=== PATIENT | female | born 1980 | race Caucasian/White ===

== ENCOUNTER 2024-07-31 13:56 | Emergency (ER) | payer MEDICAID, SELFPAY ==
[2024-07-31] VITALS (8 sets, daily range): BP systolic 128–175; BP diastolic 87–115; PULSE 82–102; RESP 16–20; TEMP 36.5–37.1; O2SAT 95–99; BMI 41.5
--- NOTE | 2024-07-31 14:31 | XR_ITS ---
Examination: CT abdomen and pelvis without contrast. Coronal 3-D reconstructions. Sagittal 2-D reconstructions. Date and time of exam:July 31, 2024, 1650 hours INDICATIONS: Abdominal pain and cramping vomiting beginning 2 days ago CTDI: vol (mGy): 12.5 DLP: (mGycm): 759 Technique: Axial images of the abdomen have been obtained, 3 mm slice thickness Intravenous contrast material has not been administered. Low dose protocols were performed. One or more of the following dose reduction techniques were used; automated exposure control, adjustment of the mA and/or KV according to patient size, use of iterative reconstruction technique. Findings: Small pericardial effusion Fatty infiltration throughout the liver, liver is irregular in contour No gallstones Spleen is not enlarged No pancreatic mass 25 mm fat-containing left adrenal adenoma No renal or ureteral calculi, no hydronephrosis No pericecal inflammatory change Large solid mass arising in the pelvis and extending into the lower abdomen, at least 12.7 x 11.6 x 14.3 cm which is contiguous with the fundus of the uterus Intrauterine device is low in position in the lower uterine segment and cervix Grade 1 spondylolisthesis L5 on S1 with moderate degenerative disc disease at the L5-S1 level IMPRESSION: 12.7 x 11.6 x 14.3 cm pelvic mass contiguous with the fundus of the uterus, differential would include uterine mass, ovarian tumor, recommend transabdominal transvaginal pelvic sonography follow-up
--- NOTE | 2024-07-31 14:32 | PD.EDRME ---
Rapid Medical Screening Exam RME Arrival date/time: 07/31/24 13:56 44-year-old female with no known medical history presents to the emergency room with a chief complaint of bilateral lower pelvic pain that radiates to her left flank x 2 days I have greeted and performed a focused initial assessment of this patient. A comprehensive ED assessment and evaluation of the patient, analysis of all test results, and completion of the medical decision making process will be conducted by additional ED providers. Chief Complaint: Abdominal Pain Vital signs: Vital Signs Temperature 98.6 F 07/31/24 14:28 Pulse Rate 102 H 07/31/24 14:28 Respiratory Rate 18 07/31/24 14:28 Blood Pressure 142/87 H 07/31/24 14:28 Pulse Oximetry (%) 99 07/31/24 14:28 Oxygen Delivery Method Room Air 07/31/24 14:28 Vital signs reviewed by provider: Yes
[2024-07-31] MEDS: ONDANSETRON ODT 4 MG TABRAP PO (15:02)
[2024-07-31] MEDS: HYDROcodone/APAP 5/325 TABLET 1 TAB PO (15:02)
[2024-07-31 15:10] LABS: Basophils # (Auto) 0.1 Thou/mm3 (0.0-0.2); Basophils % (Auto) 0 % (0-2.5); Eosinophils # (Auto) 0.1 Thou/mm3 (0.0-0.5); Eosinophils % (Auto) 1 % (0-10); Hematocrit 22.8 % (36.0-46.0); Immature Granulocytes % (Auto) 1 % (0-0); Immature Granulocytes Auto 0.07 Thou/mm3 (0.00-0.00); Lymphocytes # (Auto) 0.4 Thou/mm3 (1.0-4.8); Lymphocytes % (Auto) 3 % (10-50); Mean Corpuscular HGB Conc 30.7 g/dl (31.0-37.0); Mean Corpuscular Hemoglobin 20.5 pg (25.0-35.0); Mean Corpuscular Volume 67 fL (80-100); Monocytes # (Auto) 1.4 Thou/mm3 (0.0-0.8); Monocytes % (Auto) 12 % (0-12); Neutrophils # (Auto) 9.7 Thou/mm3 (1.8-7.7); Neutrophils % (Auto) 83 % (37-80); Nucleated Red Blood Cell % 0 /100 WBC (0); Platelet Count 478 Thou/mm3 (140-440); RDW Standard Deviation 44.5 fL (36.4-46.3); Red Blood Count 3.41 Miln/mm3 (4.00-5.20); White Blood Count 11.7 Thou/mm3 (3.6-11.0)
[2024-07-31 15:30] LABS: Alanine Aminotransferase < 7 U/L (10-49); Albumin, Serum 4.3 gm/dL (3.5-5.0); Albumin/Globulin Ratio 1.6 (1.2-2.2); Alkaline Phosphatase 67 U/L (46-116); Anion Gap 13 (7-16); BUN/Creatinine Ratio 14 Ratio (12-20); Bilirubin,Total 0.4 mg/dL (0.3-1.2); Blood Urea Nitrogen 14 mg/dL (9-23); Calcium 9.4 mg/dL (8.3-10.6); Calcium (Corrected) 9.4 mg/dL (8.5-10.1); Carbon Dioxide 25.6 mMol/L (20.0-31.0); Chloride 104 mMol/L (98-107); Estimated Creatinine Clearance 90.2 mL/min (>60); Globulin 2.7 gm/dL (2.3-3.5); Glucose 179 mg/dL (74-106); Lipase 33 U/L (12-53); Osmolality,Calculated 289 (275-295); Potassium 4.2 mMol/L (3.4-5.1); Sodium 143 mMol/L (136-145); eGFR > 60 See Note
[2024-07-31 15:34] LABS: Collection Type, Urine Clean Catch
[2024-07-31 15:51] LABS: Bilirubin,Urine 1+ (Negative); Blood,Urine 3+ (Negative); Color,Urine Drk Red (Lt Yel-Yel); Glucose, Urine Trace (Negative); Ketones,Urine Trace (Negative); Leukocyte Esterase,Urine Trace (Negative); Nitrite,Urine Positive (Negative); Protein,Urine 3+ (Neg - Trace)
[2024-07-31 16:17] LABS: HCG Qualitative,Urine Negative
[2024-07-31 16:19] LABS: Clarity,Urine Bloody (Clear/Hazy)
[2024-07-31 16:20] LABS: Bacteria,Urine Rare; RBC,Urine 10000 /hpf (0-3); Squamous Epithelial Cell,Urine 1 /hpf (0-5); WBC,Urine 30 /hpf (0-5)
--- NOTE | 2024-07-31 17:45 | XR_ITS ---
Examination: Pelvic ultrasound, transabdominal, complete Technique: Transabdominal ultrasound of the pelvis performed using grayscale imaging Date and time of exam: July 31, 20242023 hours INDICATIONS: Abdominal and pelvic pain today, 14 cm mass in the pelvis extending into the abdomen on CT abdomen and pelvis study today FINDINGS: Uterus 9.0 cm endometrial stripe 0.6 cm Intrauterine device in the lower uterine segment Right ovary is not visualized Partial visualization of the same very large pelvic mass extending into the abdomen, which is not measured on this study The left ovary 3.7 cm IMPRESSION: Large pelvic mass, likely ovarian tumor best visualized on the CT abdomen and pelvis today study Recommend MRI pelvis follow-up pre and post intravenous contrast
--- NOTE | 2024-07-31 17:46 | EKG_ITS ---
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
--- NOTE | 2024-07-31 19:26 | PC.NURSE ---
Pt was brought back for revital she is upset because no one has talked to her about what s going on Pt also stated she was told an hour ago a provider would be in to talk to her about results. Pt stated she is a 6/10 pain.
--- NOTE | 2024-07-31 19:39 | EDNOTE_ITS ---
ED Abdominal Pain RME/HPI General Chief Complaint: Abdominal Pain Stated complaint: LOWER MIDDLE ABD PAIN Time seen by provider: 07/31/24 17:47 Arrival date/time: 07/31/24 13:56 Melissa 44-year-old female presents to the ED with a complaint of lower bilateral pelvic pain with radiation to her left flank, weakness and fatigue as well as heavy vaginal bleeding with passage of clots for the past 2 days. Her heavy menstrual bleeding has been ongoing for the past 6 menstrual cycles. She does not have a primary care physician and states she has not been to a doctor in approximately 10 years. She was concerned about possible endometriosis. Source: patient Mode of arrival: ambulatory Limitations: no limitations RME / HPI RME / HPI narrative: 07/31/24 13:56 44-year-old female with no known medical history presents to the emergency room with a chief complaint of bilateral lower pelvic pain that radiates to her left flank x 2 days I have greeted and performed a focused initial assessment of this patient. A comprehensive ED assessment and evaluation of the patient, analysis of all test results, and completion of the medical decision making process will be conducted by additional ED providers. Related Data Previous Rx's ?Medication ?Instructions ?Recorded meloxicam 15 mg tablet 15 mg PO QDAY #10 tabs 08/01 Allergies Allergy/AdvReac Type Severity Reaction Status Date / Time NKA Allergy Unknown Uncoded 07/31/24 13:58 WALNUTS Allergy Unknown Uncoded 07/31/24 13:58 No Known Allergies Allergy Uncoded 07/31/24 13:58 Review of Systems Review of Systems Systems Reviewed: All systems reviewed, normal except as documented Past Medical History Social History SMOKING STATUS: Former smoker ED Exam Narrative Physical exam: Alert and oriented, melissa 44-year-old female, no acute distress. Appears pale with pale conjunctiva. Lungs are clear, regular rate and rhythm without murmurs, abdomen is soft with mild bilateral lower pelvic tenderness, mild bilateral CVA and low back tenderness. Moves all extremities well. General Limitations: Present no limitations General appearance: Present alert and in no apparent distress Course Course Course Narrative: Melissa 44-year-old female presents to the ED with a complaint of lower bilateral pelvic pain with radiation to her left flank, weakness and fatigue as well as heavy vaginal bleeding with passage of clots for the past 2 days. Her heavy menstrual bleeding has been ongoing for the past 6 menstrual cycles. She does not have a primary care physician and states she has not been to a doctor in approximately 10 years. She was concerned about possible endometriosis. Alert and oriented, pleasant 44-year-old female, no acute distress. Appears pale with pale conjunctiva. Lungs are clear, regular rate and rhythm without murmurs, abdomen is soft with mild bilateral lower pelvic tenderness, mild b ilateral CVA and low back tenderness. Moves all extremities well. Labs reveal a minimally elevated white blood cell count of 11.7, H&H low at 7.0/22.8, platelets are elevated at 478. ANC elevated at 9.7. Chemistry panel is essentially normal with the exception of a glucose of 179. LFTs and renal panel are normal Urinalysis reveals bloody dark red urine with a specific gravity of 1.020, 3+ protein, 3+ blood, positive nitrites, 1+ bilirubin, 10,000 RBCs, 30 WBCs, 1 epithelial cell and rare bacteria. Blood bank tests reveal low positive blood with negative antibody screen. Blood products ordered, PRBCs x [address] abdomen and pelvis reveals a 12.7 x 11.6 x 14.3 cm pelvic mass contiguous with the fundus of the uterus. Differential diagnosis would include uterine mass, ovarian tumor. Transabdominal and transvaginal pelvic ultrasound is recommended. Findings: Small pericardial effusion Fatty infiltration throughout the liver, liver is irregular in contour No gallstones Spleen is not enlarged No pancreatic mass 25 mm fat-containing left adrenal adenoma No renal or ureteral calculi, no hydronephrosis No pericecal inflammatory change Large solid mass arising in the pelvis and extending into the lower abdomen, at least 12.7 x 11.6 x 14.3 cm which is contiguous with the fundus of the uterus Intrauterine device is low in position in the lower uterine segment and cervix Grade 1 spondylolisthesis L5 on S1 with moderate degenerative disc disease at the L5-S1 level IMPRESSION: 12.7 x 11.6 x 14.3 cm pelvic mass contiguous with the fundus of the uterus, differential would include uterine mass, ovarian tumor, recommend transabdominal transvaginal pelvic sonography follow-up Quality Measures none Orders Category Date 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 07/31/24 17:46 Active EKG (ED ONLY) *Do not use* NOW Care 07/31/24 17:46 Completed Insert IV STAT Care 07/31/24 17:46 Active NPO NOW Care 07/31/24 17:46 Active Transfuse,blood/blood products ONCE Care 07/31/24 17:[address] abdomen pelvis wo con Stat Exams 07/31/24 14:31 Completed EKG (ED Only) Stat Exams 07/31/24 17:46 Draft US pelvic complete Stat Exams 07/31/24 17:45 Completed CBC Auto Diff Post-Transfusion Routine Lab 07/31/24 21:00 Completed CBC Stat Lab 07/31/24 14:40 Completed CMP [Comprehensive Metabolic Panel] Stat Lab 07/31/24 14:40 Completed HCG Qualitative,Urine Stat Lab 07/31/24 15:24 Completed Lipase Stat Lab 07/31/24 14:40 Completed Red Blood Cells Stat Lab 07/31/24 18:38 Results Type and Screen Stat Lab 07/31/24 18:38 Results UA [Urinalysis] Stat Lab 07/31/24 15:24 Completed Urine Culture Stat Lab 07/31/24 15:24 Received Acetaminophen Tab [Tylenol Tab] Med 07/31/24 17:46 Discontinued 650 mg PO X1 ONE DiphenhydrAMINE [Benadryl] Med 07/31/24 17:46 Discontinued 25 mg PO X1 ONE Furosemide Inj [Lasix Inj] Med 08/01/24 00:59 Discontinued 40 mg .ROUTE .STK-MED ONE Furosemide [Lasix Inj] Med 07/31/24 17:46 Discontinued 40 mg IVP X1 ONE HYDROcodone*/APAP 5/325 [[place] 5/325] Med 07/31/24 14:31 Discontinued 1 tab PO X1 ONE HYDROcodone/APAP 10/325 [[place] 10/325] Med 07/31/24 19:27 Discontinued 1 tab PO X1 ONE Ondansetron Odt [Zofran Odt] Med 07/31/24 14:31 Discontinued 4 mg PO X1 ONE Vital Signs Vital signs: Vital Signs Temperature 98.6 F 07/31/24 14:28 Pulse Rate 102 H 07/31/24 14:28 Respiratory Rate 18 07/31/24 14:28 Blood Pressure 142/87 H 07/31/24 14:28 Pulse Oximetry (%) 99 07/31/24 14:28 Oxygen Delivery Method Room Air 07/31/24 14:28 Abdominal Pain MDM MDM Narrative MDM Narrative:: Pleasant 44-year-old female presents to the ED with a complaint of lower bilateral pelvic pain with radiation to her left flank, weakness and fatigue as well as heavy vaginal bleeding with passage of clots for the past 2 days. Her heavy menstrual bleeding has been ongoing for the past 6 menstrual cycles. She does not have a primary care physician and states she has not been to a doctor in approximately 10 years. She was concerned about possible endometriosis. Alert and oriented, pleasant 44-year-old female, no acute distress. Appears pale with pale conjunctiva. Lungs are clear, regular rate and rhythm without murmurs, abdomen is soft with mild bilateral lower pelvic tenderness, mild bilateral CVA and low back tenderness. Moves all extremities well. Labs reveal a minimally elevated white blood cell count of 11.7, H&H low at 7.0/22.8, platelets are elevated at 478. ANC elevated at 9.7. Chemistry panel is essentially normal with the exception of a glucose of 179. LFTs and renal panel are normal Urinalysis reveals bloody dark red urine with a specific gravity of 1.020, 3+ protein, 3+ blood, positive nitrites, 1+ bilirubin, 10,000 RBCs, 30 WBCs, 1 epithelial cell and rare bacteria. Blood bank tests reveal low positive blood with negative antibody screen. Blood products ordered, PRBCs x [address] abdomen and pelvis reveals a 12.7 x 11.6 x 14.3 cm pelvic mass contiguous with the fundus of the uterus. Differential diagnosis would include uterine mass, ovarian tumor. Transabdominal and transvaginal pelvic ultrasound is recommended. Transabdominal and Transvaginal US reveals: Large pelvic mass, likely ovarian tumor best visualized on the CT abdomen and pelvis today study. Recommend MRI pelvis follow-up pre and post intravenous contrast. Posttransfusion hemoglobin is currently 7.5. Patient feels improved with transfusion and pain medications. Patient data External records reviewed:: None Clinical information provided by:: patient Social determinants that could affect healthcare access:: none Patient has the following chronic illnesses:: None known How is presenting disease/condition affected by chronic disease/condition?: no chronic disease Evaluation data The following diagnostics were reviewed and interpreted by me:: lab results and radiology exam(s) Lab and/or radiology exams considered but not ordered:: N/A Interpretation Summary: Labs reveal a minimally elevated white blood cell count of 11.7, H&H low at 7.0/22.8, platelets are elevated at 478. ANC elevated at 9.7. Chemistry panel is essentially normal with the exception of a glucose of 179. LFTs and renal panel are normal Urinalysis reveals bloody dark red urine with a specific gravity of 1.020, 3+ protein, 3+ blood, positive nitrites, 1+ bilirubin, 10,000 RBCs, 30 WBCs, 1 epithelial cell and rare bacteria. Blood bank tests reveal low positive blood with negative antibody screen. Blood products ordered, PRBCs x [address] abdomen and pelvis reveals a 12.7 x 11.6 x 14.3 cm pelvic mass contiguous with the fundus of the uterus. Differential diagnosis would include uterine mass, ovarian tumor. Transabdominal and transvaginal pelvic ultrasound is recommended. Transabdominal and Transvaginal US reveals: Large pelvic mass, likely ovarian tumor best visualized on the CT abdomen and pelvis today study. Recommend MRI pelvis follow-up pre and post intravenous contrast. Findings: Small pericardial effusion Fatty infiltration throughout the liver, liver is irregular in contour No gallstones Spleen is not enlarged No pancreatic mass 25 mm fat-containing left adrenal adenoma No renal or ureteral calculi, no hydronephrosis No pericecal inflammatory change Large solid mass arising in the pelvis and extending into the lower abdomen, at least 12.7 x 11.6 x 14.3 cm which is contiguous with the fundus of the uterus Intrauterine device is low in position in the lower uterine segment and cervix Grade 1 spondylolisthesis L5 on S1 with moderate degenerative disc disease at the L5-S1 level IMPRESSION: 12.7 x 11.6 x 14.3 cm pelvic mass contiguous with the fundus of the uterus, differential would include uterine mass, ovarian tumor, recommend transabdominal transvaginal pelvic sonography follow-up Transabdominal/Transvaginal US: FINDINGS: Uterus 9.0 cm endometrial stripe 0.6 cm Intrauterine device in the lower uterine segment Right ovary is not visualized Partial visualization of the same very large pelvic mass extending into the abdomen, which is not measured on this study The left ovary 3.7 cm IMPRESSION: Large pelvic mass, likely ovarian tumor best visualized on the CT abdomen and pelvis today study Recommend MRI pelvis follow-up pre and post intravenous contrast Medications / Prescriptions Medications or Prescriptions considered but not ordered:: N/A Medication administrations:: Medication Administration History Discontinued Medications Acetaminophen (Acetaminophen 325 Mg Tablet) 650 mg PO X1 ONE Stop: 07/31/24 17:47 Last Admin: 07/31/24 20:52 Dose: 650 mg Documented By: Admin: 07/31/24 20:52 Dose: 650 mg Documented By: VISH Hydrocodone Bitart/Acetaminophen (Hydrocodone/Apap 5/325 Tablet) 1 tab PO X1 ONE Stop: 07/31/24 14:32 Last Admin: 07/31/24 15:02 Dose: 1 tab Documented By: VISH Hydrocodone Bitart/Acetaminophen (Hydrocodone/Apap 10/325 Tab) 1 tab PO X1 ONE Stop: 07/31/24 19:28 Last Admin: 07/31/24 20:52 Dose: 1 tab Documented By: VISH Diphenhydramine HCl (Diphenhydramine 25 Mg Capsule) 25 mg PO X1 ONE Stop: 07/31/24 17:47 Last Admin: 07/31/24 20:53 Dose: 25 mg Documented By: VISH Furosemide (Furosemide Inj 10 Mg/Ml Vial 2 Ml) 40 mg IVP X1 ONE Stop: 07/31/24 17:47 Last Admin: 08/01/24 01:44 Dose: 40 mg Documented By: AM Furosemide (Furosemide Inj 10 Mg/Ml 4ml Vial) Confirm Administered Dose 40 mg .ROUTE .STK-MED ONE Stop: 08/01/24 01:00 Last Admin: 08/01/24 01:36 Dose: Not Given Documented By: AM Non-Admin Reason: Duplicate Medication on eMAR Ondansetron HCl (Ondansetron Odt 4 Mg Tabrap) 4 mg PO X1 ONE; Protocol Stop: 07/31/24 14:32 Last Admin: 07/31/24 15:02 Dose: 4 mg Documented By: VISH [place] 5 mg p.o. x 1, Zofran 4 mg p.o. x 1 hydrocodone 10 mg p.o. x 1 Diphenhydramine 25 mg p.o., Lasix 40 mg IVP x 1, and Tylenol 650 mg p.o. x 1 per transfusion protocol. Consultations Consultation(s) initiated? (list below): Yes Consultation #1 (Physician, Specialty, Details): Dr. Carr, REFUSE DRIVER - Have patient follow-up outpatient . Patient to call on Saturday to schedule an appointment. Time: 02:55 Diagnosis Differential diagnosis abdominal pain: abdominal pain, endometriosis and other Most likely diagnosis given after review of the tests above:: Uterine fibroid, pelvic mass (uterine or ovarian) Admission Indicated Admission indicated?: not indicated Explain why admission is indicated or not indicated:: Patient is stable for discharge Admission Request Was there a request for admission?: No Disposition Plan Disposition Plan: Discharge Discharge Attestation Discharge Attestation: The patient and all family members were given an opportunity to ask questions and understood the discharge instructions. Discharge instructions specifically effects, indications for sooner follow up or return to the emergency department, and the expected course of current diagnosis. Patient condition: Stable Discharge Plan Plan Patient Disposition: HOME (Self Care) Discharge Disposition comment: Stable and Improved Prescriptions/Referrals Prescriptions/Med Rec: New meloxicam 15 mg tablet 15 mg PO QDAY Qty: 10 0RF Referrals: Hira Carr MD [Physician] - In 1 week (Contact His office on Saturday morning to schedule a follow-up appointment next week.) No Primary/Family,Physician [Primary Care Provider] - In 1 week Problem List Clinical Impression: Anemia, Menorrhagia, Pelvic mass in female Patient/Caregiver Discharge Instructions Education Materials: Anemia, ED Dysfunctional Uterine Bleeding Additional Instructions: You have a mass in your pelvis. It is unknown if this mass is a uterine fibroid or a tumor of either the uterus or ovary. You will need to follow-up with the above REFUSE DRIVER. Call on Saturday to schedule an appointment for follow-up. Follow-up with your primary care physician in 24 to 48 hours. Return to the ED for any new or worsening symptoms. Print Language: Slovak Stand Alone Forms: Sruthi Award Info., Patient Portal Info Letter MNADY/CHIDI Supervising Physician SERA Supervising Physician: Dr. Phillips
[2024-07-31] MEDS: ACETAMINOPHEN 325 MG TABLET 650 MG PO ×2 (20:52)
[2024-07-31] MEDS: HYDROcodone/APAP 10/325 TAB PO (20:52)
[2024-07-31] MEDS: DiphenhydrAMINE 25 MG CAPSULE PO (20:53)
--- NOTE | 2024-07-31 21:15 | PC.NURSE ---
Pt was called back to be put in a room. pt did not answer when name was called in the lobby and was not found utside.
[2024-08-01 01:41] VITALS: BP 149/86; PULSE 81; RESP 16; TEMP 36.8; O2SAT 97
[2024-08-01 01:44] VITALS: BP 149/86; PULSE 81
[2024-08-01] MEDS: FUROSEMIDE INJ 10 MG/ML VIAL 2 ML 40 MG IVP (01:44)
[2024-08-01 02:35] LABS: Basophils # (Auto) 0.1 Thou/mm3 (0.0-0.2); Basophils % (Auto) 1 % (0-2.5); Eosinophils # (Auto) 0.2 Thou/mm3 (0.0-0.5); Eosinophils % (Auto) 2 % (0-10); Hematocrit 25.1 % (36.0-46.0); Immature Granulocytes % (Auto) 1 % (0-0); Immature Granulocytes Auto 0.06 Thou/mm3 (0.00-0.00); Lymphocytes # (Auto) 0.6 Thou/mm3 (1.0-4.8); Lymphocytes % (Auto) 5 % (10-50); Mean Corpuscular HGB Conc 29.9 g/dl (31.0-37.0); Mean Corpuscular Hemoglobin 21.1 pg (25.0-35.0); Mean Corpuscular Volume 71 fL (80-100); Monocytes # (Auto) 1.4 Thou/mm3 (0.0-0.8); Monocytes % (Auto) 13 % (0-12); Neutrophils % (Auto) 79 % (37-80); Nucleated Red Blood Cell # 0.02 Thou/mm3 (0.00-0.00); Nucleated Red Blood Cell % 0 /100 WBC (0); Platelet Count 469 Thou/mm3 (140-440); Red Blood Count 3.55 Miln/mm3 (4.00-5.20); White Blood Count 11.3 Thou/mm3 (3.6-11.0)
[2024-08-01 02:41] LABS: Hemoglobin 7.5 g/dL (12.0-16.0)
== END 2024-08-01 03:50 | disposition home or self-care (01) ==
PROVIDERS: Nurse Practitioner Family; Physician Assistant; Emergency Provider Emergency Medicine
DX: D64.9 Anemia, unspecified (principal); N85.8 Other specified noninflammatory disorders of uterus; D72.829 Elevated white blood cell count, unspecified
CPT/HCPCS: 36415; 36430; 74176; 76856; 80053; 81001; 81025; 83690; 85025; 86850; 86900; 86901; 86923; 87086; 93005; 96374; 99285; J1938; P9016; Q0162; A9270

== ENCOUNTER 2024-11-19 10:07 | Inpatient (IN) | payer MEDICAID, SELFPAY ==
[2024-11-19] VITALS (20 sets, daily range): BP systolic 123–154; BP diastolic 61–111; PULSE 70–112; RESP 16–26; TEMP 36.2–38; O2SAT 94–100; BMI 31.0; BMI 31.1
--- NOTE | 2024-11-19 | XR_ITS ---
Examination: MRI pelvis with intravenous contrast. MRI pelvis without intravenous contrast. Date and time of exam: November 19, 2024, 1849 hrs. Indications: Vaginal bleeding beginning 5 days ago worse the last 2 days, pelvic sonogram May 19, 2024 right ovarian tumor mass 14.7 x 11.6 x 15.9 cm Technique: Multiple axial, sagittal and coronal sections of the pelvis obtained. Transverse images, TR 6020, TE 107. T1 weighted transverse images, TR 582, TE 9.5. T2-weighted sagittal images, TR 4000, TE 105. T2-weighted sagittal images, TR 4000, TE 5. Coronal images, TR 4210, TE 107. Axial and coronal images are obtained post 17 cc intravenous injection, gadolinium. 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
--- NOTE | 2024-11-19 10:13 | EKG_ITS ---
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
--- NOTE | 2024-11-19 10:13 | XR_ITS ---
Examination: PA lateral chest 2 views TECHNIQUE: Upright PA lateral chest 2 views Date and time: November 19, 2024 1034 hours INDICATIONS: Weakness fatigue 2 weeks FINDINGS: Normal heart size Lungs are clear. The osseous structures are intact IMPRESSION: No active disease
--- NOTE | 2024-11-19 10:34 | PD.EDRME ---
Rapid Medical Screening Exam RME Arrival date/time: 11/19/24 10:07 44-year-old female presents to the emergency department today with complaints of anemia and near syncopal episode Chief Complaint: Syncope / Near Syncope Time Seen by Provider: 11/19/24 10:09 Vital signs: Vital Signs Temperature 98.6 F 11/19/24 10:20 Pulse Rate 112 H 11/19/24 10:20 Respiratory Rate 20 11/19/24 10:20 Blood Pressure 151/96 H 11/19/24 10:20 Pulse Oximetry (%) 100 11/19/24 10:20 Oxygen Delivery Method Room Air 11/19/24 10:20
[2024-11-19 11:38] LABS: Basophils # (Auto) 0.1 Thou/mm3 (0.0-0.2); Basophils % (Auto) 1 % (0-2.5); Eosinophils # (Auto) 0.0 Thou/mm3 (0.0-0.5); Eosinophils % (Auto) 0 % (0-10); Hematocrit 21.0 % (36.0-46.0); Immature Granulocytes Auto 0.09 Thou/mm3 (0.00-0.00); Lymphocytes # (Auto) 0.5 Thou/mm3 (1.0-4.8); Lymphocytes % (Auto) 6 % (10-50); Mean Corpuscular HGB Conc 27.6 g/dl (31.0-37.0); Mean Corpuscular Hemoglobin 19.4 pg (25.0-35.0); Mean Corpuscular Volume 70 fL (80-100); Monocytes # (Auto) 1.4 Thou/mm3 (0.0-0.8); Monocytes % (Auto) 15 % (0-12); Neutrophils # (Auto) 7.3 Thou/mm3 (1.8-7.7); Neutrophils % (Auto) 77 % (37-80); Nucleated Red Blood Cell # 0.00 Thou/mm3 (0.00-0.00); Nucleated Red Blood Cell % 0 /100 WBC (0); Platelet Count 536 Thou/mm3 (140-440); RDW Standard Deviation 48.1 fL (36.4-46.3); Red Blood Count 2.99 Miln/mm3 (4.00-5.20); White Blood Count 9.4 Thou/mm3 (3.6-11.0)
[2024-11-19 11:47] LABS: INR 1.1 (0.9-1.3); Partial Thromboplastin Time 23.1 Seconds (22.0-36.0); Prothrombin Time 12.1 Seconds (9.0-12.2)
[2024-11-19 11:49] LABS: Hemoglobin 5.8 g/dL (12.0-16.0)
[2024-11-19 11:51] LABS: Alanine Aminotransferase < 7 U/L (10-49); Albumin, Serum 4.5 gm/dL (3.5-5.0); Albumin/Globulin Ratio 1.6 (1.2-2.2); Alkaline Phosphatase 67 U/L (46-116); Anion Gap 14 (7-16); Aspartate Amino Transferase 14 U/L (0-34); BUN/Creatinine Ratio 17 Ratio (12-20); Bilirubin,Total 0.4 mg/dL (0.3-1.2); Blood Urea Nitrogen 15 mg/dL (9-23); Calcium 10.1 mg/dL (8.3-10.6); Calcium (Corrected) 10.1 mg/dL (8.5-10.1); Carbon Dioxide 20.6 mMol/L (20.0-31.0); Chloride 103 mMol/L (98-107); Creatinine (Component) 0.9 mg/dL (0.6-1.3); Estimated Creatinine Clearance 88.8 mL/min (>60); Globulin 2.8 gm/dL (2.3-3.5); Glucose 164 mg/dL (74-106); Magnesium 1.8 mg/dL (1.6-2.6); Osmolality,Calculated 280 (275-295); Potassium 3.6 mMol/L (3.4-5.1); Sodium 138 mMol/L (136-145); Total Protein 7.3 gm/dL (5.7-8.2); Troponin I < 0.002 ng/mL (0.0-0.045); eGFR > 60 See Note
--- NOTE | 2024-11-19 12:02 | PD.EDVAGBL ---
ED OB Contraction Preg RMI/HPI General Chief complaint: Vaginal Bleeding Stated complaint: vag. bleeding 1 pad/hr, near syncope Time Seen by Provider: 11/19/24 10:09 Arrival date/time: 11/19/24 10:07 Limitations: no limitations RME / HPI RME / HPI Narrative: 11/19/24 10:07 44-year-old female presents to the emergency department today with complaints of anemia and near syncopal episode DR. SAAB MAIN ED EVALUATION 44 year old female presents to the ED for evaluation of vaginal bleeding with blood clots (varying in size) that began 5 days ago Saturday and worsening in the last 2 days. States she is now filling a pad every 1 hour. Accompanied by fevers, though reports she has had fevers every night for several months. Reportedly has had heavy irregular menses since July of this year, lasting up to 14 days at a time. Patient states she was evaluated here July of this year for pelvic pain and heavy vaginal bleeding. Had a CT scan performed showing a pelvic mass. States she followed up with PCP Dr. Chacon who referred her to [facility] Dr. Villagomez. States Dr. Villagomez removed her IUD and performed biopsies of the mass showing it was benign. States Dr. Villagomez has referred her to [facility] Dr. Thompson for further evaluation and treatment. Patient additionally reports Dr. Villagomez prescribed a 10-day course of Medroxyprogesterone to take. States she took the Medroxyprogesterone 10/26-11/04/2024. Denies any chest pain, cough, shortness of breath, n/v. Denies abnormal vaginal discharge. No history of STI. Related Data Home Medications ?Medication ?Instructions ?Recorded ?Confirmed ferrous sulfate 325 mg (65 mg 325 mg PO TID 11/19/24 11/23/24 iron) tablet (FeroSul) medroxyprogesterone 10 mg tablet 10 mg PO QDAY 11/19/24 11/23/24 sennosides 8.6 mg-docusate sodium 2 tab-cap PO DAILY PRN constipation 11/19/24 11/23/24 50 mg tablet (2-in-1 Laxative) Previous Rx's ?Medication ?Instructions ?Recorded meloxicam 15 mg tablet 15 mg PO QDAY #10 tabs 08/01/24 tramadol 50 mg tablet 50 mg PO BID PRN pain #30 tabs 11/20/24 tramadol 50 mg tablet 50 mg PO BID PRN pain #30 tabs 11/20/24 magnesium citrate (OneLAX 300 ml PO QDAY PRN constipation 11/23/24 Magnesium Citrate oral solution) #296 mL Allergies Allergy/AdvReac Type Severity Reaction Status Date / Time WALNUTS Allergy Unknown Uncoded 11/23/24 11:39 Review of Systems Review of Systems Systems Reviewed: All systems reviewed, normal except as documented Past Medical History Past Medical History CARDIAC: Negative Congestive Heart Failure RESPIRATORY: Negative Chronic Obstructive Pulmonary Disease (COPD) GENITOURINARY: Negative Renal Disease ENDOCRINE: Negative Diabetes Mellitus Type 1 or Diabetes Mellitus Type 2 Social History SMOKING STATUS: Former smoker ED Exam General Limitations: Present no limitations General appearance: Present alert, in no apparent distress and other (Pale ) Head Head exam: Present atraumatic Eye Eye exam: Present normal appearance, PERRL and EOMI ENT ENT exam: Present normal exam, normal oropharynx and mucous membranes moist Neck Neck exam: Present normal inspection, full ROM and trachea midline Chest Chest inspection: Present normal inspection and symmetric chest wall rise Respiratory Respiratory exam: Present normal lung sounds bilaterally Cardiovascular Cardiovascular exam: Present normal rhythm, tachycardia and normal heart sounds Abdominal Exam Abdominal exam: Present soft and normal bowel sounds Extremities Exam Extremities exam: Present normal inspection, full ROM and normal capillary refill Back Exam Back exam: Present normal inspection and full ROM Neurological Exam Neurological exam: Present alert, oriented X3 and CN II-XII intact Psychiatric Psychiatric exam: Present normal affect and normal mood Skin Skin exam: Present warm, dry, intact and pallor Course Quality Measures none Orders Category Date Time Status EKG (ED ONLY) *Do not use* NOW Care 11/19/24 10:13 Completed MRI Screening NOW Care 11/19/24 15:14 Completed EKG (ED Only) Stat Exams 11/19/24 10:13 Draft MR pelvis wo/w con Stat Exams 11/19/24 Completed US pelvic complete Stat Exams 11/19/24 12:04 Completed XR chest 2V Stat Exams 11/19/24 10:13 Completed B-Type Natriuretic Peptide Stat Lab 11/19/24 11:13 Completed Beta HCG,Quantitative Stat Lab 11/19/24 15:52 Completed Blood Culture (Lab) Stat Lab 11/19/24 16:41 Completed CA 125 Stat Lab 11/19/24 15:52 Completed CA 19-9 Antigen* Stat Lab 11/19/24 15:52 Completed CBC Stat Lab 11/19/24 11:13 Completed Carcinoembryonic Antigen Stat Lab 11/19/24 15:52 Completed Chlamydia/GC/TV - PCR Stat Lab 11/19/24 16:20 Completed Comprehensive Metabolic Panel Stat Lab 11/19/24 11:13 Completed Drug Screen,Urine Stat Lab 11/19/24 16:20 Completed HCG Qualitative,Urine Stat Lab 11/19/24 16:20 Completed LDH (Lactate Dehydrogenase) Stat Lab 11/19/24 15:52 Completed Magnesium Stat Lab 11/19/24 11:13 Completed Partial Thromboplastin Time Stat Lab 11/19/24 11:13 Completed Path Review Blood Smear Stat Lab 11/19/24 11:13 Completed Prothrombin Time with INR Stat Lab 11/19/24 11:13 Completed Red Blood Cells Stat Lab 11/19/24 11:13 Completed Troponin I Stat Lab 11/19/24 11:13 Completed Type and Screen Stat Lab 11/19/24 11:13 Completed Urinalysis, C/S if Indicated Stat Lab 11/19/24 16:20 Completed Acetaminophen Tab [Tylenol Tab] Med 11/19/24 13:47 Discontinued 650 mg PO X1 ONE HYDROmorphone INJ [Dilaudid Inj] Med 11/19/24 13:07 Discontinued 0.5 mg IVP X1 ONE Vital Signs Vital signs: Vital Signs Temperature 98.6 F 11/19/24 10:20 Pulse Rate 112 H 11/19/24 10:20 Respiratory Rate 20 11/19/24 10:20 Blood Pressure 151/96 H 11/19/24 10:20 Pulse Oximetry (%) 100 11/19/24 10:20 Oxygen Delivery Method Room Air 11/19/24 10:20 Pulse ox is 100% on room air which is adequate. Vaginal Bleeding MDM Narrative MDM Narrative: Patient is a 44-year-old female is in the emerged part concerns for heavy vaginal bleeding. Vital signs and exam as listed. Ordered labs, pelvic ultrasound. Concern for abnormal uterine bleeding secondary to , ectopic , endometriosis, miscarriage among others. Labs with evidence of hemoglobin 5.8, previously 7.5 in August. Microcytic anemia. Patient with thrombocytosis platelets 536. Patient does not have a white count, does not have a left shift. No significant acute electrolyte abnormality, troponin not elevated. Given low hemoglobin will provide patient with 2 units of blood. Will also consult on-call wellness health coach. Urinalysis with hematuria. hCG (-) 14:04p I spoke with OBGYN Dr. Thompson. Discussed patients PMHx, HPI, ED course, exam findings, labs, and radiology results. States he will come evaluate the patient in the ED. OBGYN Dr. Thompson has evaluated the patient in the ED and will admit to his services. Patient data External records reviewed:: [facility] previous records Clinical information provided by:: patient Social determinants that could affect healthcare access:: none Patient has the following chronic illnesses:: See mdm Pelvic mass dx 07/2024 How is presenting disease/condition affected by chronic disease/condition?: exacerbated by Evaluation data The following diagnostics were reviewed and interpreted by me:: lab results, radiology exam(s) and EKG tracing(s) Lab and/or radiology exams considered but not ordered:: None Interpretation Summary: See MDM Medications / Prescriptions Medications or Prescriptions considered but not ordered:: None Medication administrations:: Medication Administration History Discontinued Medications Acetaminophen (Acetaminophen 325 Mg Tablet) 650 mg PO X1 ONE Stop: 11/19/24 13:48 Last Admin: 11/19/24 13:55 Dose: 650 mg Documented By: JULIANA Acetaminophen (Acetaminophen 325 Mg Tablet) 650 mg PO Q6H PRN PRN Reason: Fever >101.5 Stop: 12/19/24 15:48 Hydrocodone Bitart/Acetaminophen (Hydrocodone/Apap 5/325 Tablet) 1 tab PO Q4H PRN PRN Reason: PAIN SCALE 4-6 (Moderate Stop: 11/24/24 15:48 Bisacodyl (Bisacodyl 5 Mg Tabec) 10 mg PO QDAY PRN PRN Reason: CONSTIPATION Stop: 12/19/24 15:48 Bisacodyl (Bisacodyl 10 Mg Supp) 10 mg WI QDAY PRN PRN Reason: CONSTIPATION Stop: 12/19/24 15:48 Docusate Sodium (Docusate Sod 100 Mg Capsule) 100 mg PO QDAY CHARLES Stop: 12/19/24 15:59 Last Admin: 11/20/24 08:01 Dose: 100 mg Documented By: Admin: 11/19/24 16:49 Dose: 100 mg Documented By: FC Hydromorphone HCl (Hydromorphone Inj 2 Mg/Ml Vial) 0.5 mg IVP X1 ONE Stop: 11/19/24 13:08 Last Admin: 11/19/24 13:18 Dose: 0.5 mg Documented By: JULIANA Hydromorphone HCl (Hydromorphone Inj 2 Mg/Ml Vial) 1 mg IVP Q2H PRN PRN Reason: PAIN SCALE 7-10 (Severe Stop: 11/24/24 15:48 Last Admin: 11/20/24 16:33 Dose: 1 mg Documented By: Admin: 11/20/24 10:46 Dose: 1 mg Documented By: Admin: 11/20/24 04:47 Dose: 1 mg Documented By: Admin: 11/19/24 19:52 Dose: 1 mg Documented By: TRICIA Dextrose/Sodium Chloride (D5-1/2ns) 1,000 mls @ 100 mls/hr IV .Q10H CHARLES Stop: 12/19/24 15:59 Last Admin: 11/20/24 14:29 Dose: 100 mls/hr Documented By: Admin: 11/20/24 14:28 Dose: Not Given Documented By: SUSHANT Non-Admin Reason: delayed for transfusion Infusion: 11/20/24 03:29 Dose: Infused Documented By: Admin: 11/19/24 17:29 Dose: 100 mls/hr Documented By: JULIANA Piperacillin/Tazobactam/Dextrose (Zosyn) 3.375 gm in 50 mls @ 12.5 mls/hr IV Q8HR CHARLES; Protocol Stop: 11/26/24 21:59 Last Admin: 11/20/24 13:50 Dose: 12.5 mls/hr Documented By: Infusion: 11/20/24 09:37 Dose: Infused Documented By: Admin: 11/20/24 05:37 Dose: 12.5 mls/hr Documented By: Infusion: 11/20/24 01:32 Dose: Infused Documented By: Admin: 11/19/24 21:32 Dose: 12.5 mls/hr Documented By: TRICIA Piperacillin/Tazobactam/Dextrose (Zosyn) 3.375 gm in 50 mls @ 100 mls/hr IV X1 ONE; Protocol Stop: 11/19/24 16:29 Last Infusion: 11/19/24 17:27 Dose: Infused Documented By: Admin: 11/19/24 16:55 Dose: 100 mls/hr Documented By: JULIANA Ondansetron HCl (Ondansetron Inj 2 Mg/Ml Inj 2 Ml) 4 mg IVP Q6H PRN PRN Reason: NAUSEA OR VOMITING Stop: 12/19/24 15:48 Last Admin: 11/20/24 05:43 Dose: 4 mg Documented By: Admin: 11/19/24 16:54 Dose: 4 mg Documented By: JULIANA Pantoprazole Sodium (Pantoprazole Inj 40 Mg Vial) 40 mg IVP QDAY CHARLES Stop: 12/19/24 15:59 Last Admin: 11/20/24 08:02 Dose: 40 mg Documented By: Admin: 11/19/24 16:49 Dose: 40 mg Documented By: JULIANA See above Consultations Consultation(s) initiated? (list below): Yes Consultation #1 (Physician, Specialty, Details): See MDM Diagnosis Vaginal Bleeding Differential Diagnosis: other (See MDM) Most likely diagnosis given after review of the tests above:: Symptomatic anemia Abnormal vaginal bleeding Pelvic mass Admission Indicated Admission indicated?: indicated Admission Request Was there a request for admission?: Yes Admission Attestation Admission request attestation: Discussed case with [] from Hospitalist service regarding admission. Discussed patients ED course, exam findings, labs, and radiology results. The Hospitalist [agrees,declines] to accept the patient for admission. Disposition Plan Disposition Plan: Admit Critical Care Time Critical Care Time Critical Care Time: Yes Total Critical Care Time (min.): 60 Attestation: The high probability of sudden, clinically significant deterioration in the patient's condition required the highest level of my preparedness to intervene urgently. The services I provided to this patient were to treat and/or prevent clinically significant deterioration. Services included the following: chart data review, reviewing nursing notes and/or old charts, documentation time, entry level sales consultant collaboration regarding findings and treatment options, medication orders and management, direct patient care, vital sign assessments and ordering, interpreting and reviewing diagnostic studies and lab tests. Aggregate critical care time includes only time during which I was engaged in work directly related to the patient's care, as described above, whether at bedside or elsewhere in the Emergency Department. It did not include time spent performing other reported procedures or the services of residents, students, nurses or physician assistants. Discharge Plan Plan Patient Disposition: Admit Acute Care w/in Hospital Problem List Clinical Impression: Symptomatic anemia, Abnormal vaginal bleeding, Pelvic mass Patient/Caregiver Discharge Instructions Discharge Activity: activity as tolerated Other Activity Instructions:: Pelvic rest Diet Instructions: Continue to take oral iron. Eat iron rich foods.
[2024-11-19 12:03] LABS: Path Review Blood Smear Sent to Pathologist
--- NOTE | 2024-11-19 12:04 | XR_ITS ---
Examination: Pelvic ultrasound, transabdominal, complete Technique: Transabdominal ultrasound of the pelvis performed using grayscale imaging Date and time of exam: November 19, 2024, 1211 hours, comparison July 31, 2024 INDICATIONS: Left ovarian tumor mass 11/30/2024, severe bleeding today FINDINGS: Uterus 12.8 cm uterine fundal mass 4.0 x 3.0 cm Endometrial stripe 1.7 cm Right ovary 4.6 cm arterial flow, 14.7 x 11.6 x 15.9 cm vascular mass right ovary Left ovary 5.4 cm arterial flow, 33 and 22 mm cyst IMPRESSION: Large vascular right ovarian tumor mass Recommend ELECTIVE MRI pelvis follow-up pre and postcontrast
[2024-11-19 12:22] LABS: B-Type Natriuretic Peptide 21 pg/mL (0-100)
[2024-11-19] MEDS: HYDROmorphone INJ 2 MG/ML VIAL 0.5 MG IVP (13:18)
[2024-11-19] MEDS: ACETAMINOPHEN 325 MG TABLET 650 MG PO (13:55)
--- NOTE | 2024-11-19 16:01 | PD.GYNHP ---
Documentation for date of: 11/19/24 [employer] REPRESENTATIVE - HPI History of Present Illness History of present illness: Menorrhagia with critical hemoglobin of 5.8, palpable abdominal mass Charo Duncan, a 45-year-old female, presents to the emergency room with menorrhagia and a critical hemoglobin of 5.8. She has experienced worsening periods with heavy clots for over a year, initially attributed to pre-menopause. The patient reports that on July 30, she had a severe period with spasms, which prompted imaging. Following this episode, she switched medical providers and consulted Dr. Kiran at [facility], who then referred her to Dr. Villagomez. Dr. Villagomez removed her IUD and performed a biopsy, which returned negative results. A referral to Dr. Thompson was delayed due to insurance changes but was finally approved on October 26. Charo's symptoms have progressively worsened over time. She has been experiencing fevers since July, which remain unexplained. The patient's menorrhagia has significantly impacted her health, as evidenced by the critical drop in her hemoglobin levels from 7.5 in August to the current 5.8, necessitating a blood transfusion. The patient reports a family history of liver cancer, which may be relevant to her current condition. Charo's severe bleeding and associated symptoms have likely affected her daily functioning, though specific impacts are not detailed in the provided information. Medical History: - Menorrhagia (worsening periods with heavy clots for over a year) - Fevers since July Surgical History: - IUD removal and endometrial biopsy performed by Dr. Villagomez Diagnostic Test Results and Labs: - CBC (11-19-2024): Hemoglobin 5.8 g/dL - CBC (August 2024): Hemoglobin 7.5 g/dL - Pelvic ultrasound (11-19-2024): Uterus 12.8 cm, uterine fundal mass 4 x 3 cm, endometrial stripe 1.7 cm, right ovary 4.6 cm with arterial flow, right ovarian mass 14.7 x 11.6 x 15.9 cm vascular, left ovary 5.4 cm with arterial flow, left ovarian cyst 32 x 22 mm - CT scan (July 2024): Pelvic mass 12.7 x 11.6 x 14.3 cm, contiguous with uterine fundus - Endometrial biopsy: Negative Meds Home Medications and Allergies Allergies Allergy/AdvReac Type Severity Reaction Status Date / Time WALNUTS Allergy Unknown Uncoded 11/19/24 10:12 Exam - [employer] REPRESENTATIVE Vital Signs Temp Pulse Resp BP Pulse Ox O2 Del Method 99.7 F 94 16 145/83 H 97 Room Air 11/19/24 15:20 11/19/24 15:20 11/19/24 15:20 11/19/24 15:20 11/19/24 15:20 11/19/24 12:00 Narrative Exam - Abdomen: Mass palpable through the abdomen. Constitutional Constitutional: no acute distress Routine HEENT Exam Head: Present normocephalic and atraumatic Eye: Present EOMI and PERRL ENT: Present mucous membranes moist Routine Neck Exam Neck: Present supple and trachea midline Routine Respiratory Exam Respiratory: Present chest non-tender, lungs clear, normal breath sounds and no resp distress Routine Cardiovascular Exam Cardiovascular: Present RRR Routine Extremities Exam Extremities: Present full ROM Routine Skin Exam Skin: Present intact and dry Routine Neurological Exam Neurological: Present alert, oriented X3 and CN II-XII intact Routine Psychiatric Exam Psychiatric: Present normal affect and normal thought process [employer] REPRESENTATIVE - Results Labs 11/19/24 11:13 11/19/24 11:13 Labs: Short CBC 11/19/24 Range/Units 11:13 WBC 9.4 (3.6-11.0) Thou/mm3 Hgb 5.8 L* (12.0-16.0) g/dL Hct 21.0 L* (36.0-46.0) % Plt Count 536 H (140-440) Thou/mm3 BMP 11/19/24 11:13 Sodium 138 Potassium 3.6 Chloride 103 Carbon Dioxide 20.6 BUN 15 Creatinine 0.9 Glucose 164 H Calcium 10.1 Cardiac Enzymes 11/19/24 Range/Units 11:13 Troponin I < 0.002 (0.0-0.045) ng/mL Liver Function 11/19/24 Range/Units 11:13 Total Bilirubin 0.4 (0.3-1.2) mg/dL AST 14 (0-34) U/L ALT < 7 L (10-49) U/L Alkaline Phosphatase 67 (46-116) U/L Albumin 4.5 (3.5-5.0) gm/dL Assessment and Plan Assessment and plan (1) Pelvic mass in female: Status: Inactive Assessment and plan: Menorrhagia with severe anemia Assessment: Patient presents with worsening menorrhagia for over a year, initially thought to be pre-menopause. Current hemoglobin is critically low at 5.8, down from 7.5 in August. The severe bleeding is likely related to the identified pelvic mass. Patient is currently receiving a blood transfusion to address the critical anemia. Plan: - Continue blood transfusion - Monitor hemoglobin levels - Admit for overnight observation - May require additional blood transfusions before surgery Large pelvic mass of unknown origin Assessment: Pelvic ultrasound reveals a 12.8 cm uterus with a 4x3 cm fundal mass. A 14.7x11.6x15.9 cm vascular mass is noted on the right ovary. CT scan from July shows a 12.7x11.6x14.3 cm pelvic mass contiguous with the uterine fundus. The mass is palpable through the abdomen. Differential diagnosis includes uterine mass (possibly leiomyoma), ovarian mass, or tumor. Malignancy cannot be ruled out due to the size and associated heavy bleeding. Adnexal masses could be neoplastic or non-neoplastic. Plan: - Obtain MRI of the pelvis - Order tumor markers - Consider surgical exploration or transfer to gynecologic oncologist based on findings Recurrent fevers Assessment: Patient reports experiencing fevers since July. The cause of these fevers is currently unknown and requires further investigation. Plan: - Send cultures to investigate the cause of fevers Quality Measures Quality Measures VTE prophylaxis
[2024-11-19 16:30] LABS: Collection Type, Urine Clean Catch
[2024-11-19 16:42] LABS: Bilirubin,Urine Negative (Negative); Blood,Urine 3+ (Negative); Color,Urine Yellow (Lt Yel-Yel); Culture Indicated,Urine Not Indicated; Glucose, Urine Negative (Negative); Hyaline Casts,Urine < 1 /hpf (0-1); Ketones,Urine Negative (Negative); Leukocyte Esterase,Urine Positive (Negative); Nitrite,Urine Negative (Negative); PH,Urine 5.5 (5.0-7.0); Protein,Urine Trace (Neg - Trace); RBC,Urine 737 /hpf (0-3); Specific Gravity,Urine 1.022 (1.001-1.035); Squamous Epithelial Cell,Urine 1 /hpf (0-5); Urobilinogen,Urine Negative mg/dL (0.0-1.0); WBC,Urine 2 /hpf (0-5)
[2024-11-19] MEDS: DOCUSATE SOD 100 MG CAPSULE PO (16:49)
[2024-11-19 16:50] LABS: HCG Qualitative,Urine Negative
[2024-11-19 16:54] LABS: Clarity,Urine Hazy (Clear/Hazy)
[2024-11-19] MEDS: ONDANSETRON INJ 2 MG/ML INJ 2 ML 4 MG IVP (16:54)
[2024-11-19] MEDS: PIPER/TAZO 3.375 GM PREMIX 3.375 GM/50 ML BAG IV ×2 (16:55→21:32)
[2024-11-19 17:18] LABS: Beta HCG,Quantitative < 0 mIU/mL (<5.0); LDH (Lactate Dehydrogenase) 954 U/L (120-246)
[2024-11-19 17:20] LABS: CA 125 198.0 U/mL (<30.2); Carcinoembryonic Antigen < 0.5 ng/mL (0.0-5.0)
[2024-11-19] MEDS: DEXTROSE 5%-0.45% NS 1,000 ML 100 ML IV (17:29)
[2024-11-19 17:41] LABS: Amphetamine/Methamp Scrn,U Negative (Negative); Barbiturate Screen,Urine Negative (Negative); Benzodiazepines Screen,Urine Negative (Negative); Benzoylecgonine Screen, Ur Negative (Negative); Fentanyl Screen,Urine Negative (Negative); Opiate Screen,Urine Negative (Negative); THC Screen,Urine Positive (Negative)
[2024-11-19] MEDS: HYDROmorphone INJ 2 MG/ML VIAL 1 MG IVP (19:52)
--- NOTE | 2024-11-19 20:46 | PC.NURSE ---
Recieved a phone call from lab regarding Dr. Thompson order of 2 more units of PRBC, and a unit of FFP. ER has given patient 2 units of PRBC and Dr Thompson wants two more units to be given for a total of [address] Thompson was contacted for verification of order and was confirmed to give 2 more PRBC and the remaining unit of FFP.
[2024-11-20] VITALS (14 sets, daily range): BP systolic 118–153; BP diastolic 75–96; PULSE 75–92; RESP 18–20; TEMP 36.1–37.1; O2SAT 95–99
[2024-11-20] MEDS: HYDROmorphone INJ 2 MG/ML VIAL 1 MG IVP ×3 (04:47→16:33)
[2024-11-20] MEDS: PIPER/TAZO 3.375 GM PREMIX 3.375 GM/50 ML BAG IV ×2 (05:37→13:50)
[2024-11-20] MEDS: ONDANSETRON INJ 2 MG/ML INJ 2 ML 4 MG IVP (05:43)
[2024-11-20] MEDS: DOCUSATE SOD 100 MG CAPSULE PO (08:01)
[2024-11-20 09:11] LABS: Basophils # (Auto) 0.1 Thou/mm3 (0.0-0.2); Basophils % (Auto) 1 % (0-2.5); Eosinophils # (Auto) 0.1 Thou/mm3 (0.0-0.5); Eosinophils % (Auto) 1 % (0-10); Hematocrit 29.2 % (36.0-46.0); Hemoglobin 9.3 g/dL (12.0-16.0); Immature Granulocytes Auto 0.07 Thou/mm3 (0.00-0.00); Lymphocytes # (Auto) 0.5 Thou/mm3 (1.0-4.8); Lymphocytes % (Auto) 4 % (10-50); Mean Corpuscular HGB Conc 31.8 g/dl (31.0-37.0); Mean Corpuscular Hemoglobin 24.0 pg (25.0-35.0); Mean Corpuscular Volume 75 fL (80-100); Monocytes # (Auto) 1.5 Thou/mm3 (0.0-0.8); Monocytes % (Auto) 14 % (0-12); Neutrophils # (Auto) 8.6 Thou/mm3 (1.8-7.7); Neutrophils % (Auto) 80 % (37-80); Nucleated Red Blood Cell # 0.00 Thou/mm3 (0.00-0.00); Nucleated Red Blood Cell % 0 /100 WBC (0); Platelet Count 354 Thou/mm3 (140-440); RDW Standard Deviation 53.9 fL (36.4-46.3); Red Blood Count 3.88 Miln/mm3 (4.00-5.20); White Blood Count 10.8 Thou/mm3 (3.6-11.0)
--- NOTE | 2024-11-20 10:47 | PC.SS ---
Charo Clark is a 44-year-old female admitted to Med Surg for Pelvic Mass. SS conducted bedside contact with the patient to complete initial assessment and to discuss discharge planning. Role and reason explained. Patient confirmed demographic information. Patient identifies mother Terri Clark [phone] as her surrogate decision maker. Pt states she is able to complete all ADL?s independently. No need for any source of DME. Pts PCP is Dr. Chacon. Pharmacy of choice is [facility]. Discharge options discussed and the pt wishes to return home.? Family will provide transportation upon DC. No further intervention required at this time, case management social worker would be available to address any further concerns. DC Plan: Home Contact: Terri Bynum Address: Confirmed on face sheet PCP: Oswaldo
[2024-11-20] MEDS: DEXTROSE 5%-0.45% NS 1,000 ML 100 ML IV (14:29)
[2024-11-20 16:31] LABS: Basophils # (Auto) 0.1 Thou/mm3 (0.0-0.2); Basophils % (Auto) 1 % (0-2.5); Eosinophils # (Auto) 0.1 Thou/mm3 (0.0-0.5); Eosinophils % (Auto) 1 % (0-10); Hematocrit 25.1 % (36.0-46.0); Immature Granulocytes Auto 0.09 Thou/mm3 (0.00-0.00); Lymphocytes # (Auto) 0.4 Thou/mm3 (1.0-4.8); Lymphocytes % (Auto) 3 % (10-50); Mean Corpuscular HGB Conc 31.5 g/dl (31.0-37.0); Mean Corpuscular Hemoglobin 23.9 pg (25.0-35.0); Mean Corpuscular Volume 76 fL (80-100); Monocytes # (Auto) 1.9 Thou/mm3 (0.0-0.8); Monocytes % (Auto) 15 % (0-12); Neutrophils # (Auto) 10.2 Thou/mm3 (1.8-7.7); Neutrophils % (Auto) 80 % (37-80); Nucleated Red Blood Cell # 0.00 Thou/mm3 (0.00-0.00); Nucleated Red Blood Cell % 0 /100 WBC (0); Platelet Count 401 Thou/mm3 (140-440); RDW Standard Deviation 54.6 fL (36.4-46.3); Red Blood Count 3.30 Miln/mm3 (4.00-5.20); White Blood Count 12.8 Thou/mm3 (3.6-11.0)
[2024-11-20 16:46] LABS: Hemoglobin 7.9 g/dL (12.0-16.0)
[2024-11-20 16:50] LABS: INR 1.1 (0.9-1.3); Partial Thromboplastin Time 26.9 Seconds (22.0-36.0); Prothrombin Time 12.3 Seconds (9.0-12.2)
[2024-11-20 17:04] LABS: Alanine Aminotransferase < 7 U/L (10-49); Albumin, Serum 3.5 gm/dL (3.5-5.0); Albumin/Globulin Ratio 1.6 (1.2-2.2); Alkaline Phosphatase 54 U/L (46-116); Anion Gap 9 (7-16); Aspartate Amino Transferase < 10 U/L (0-34); BUN/Creatinine Ratio 10 Ratio (12-20); Bilirubin,Total 0.4 mg/dL (0.3-1.2); Blood Urea Nitrogen 8 mg/dL (9-23); Calcium 9.2 mg/dL (8.3-10.6); Calcium (Corrected) 9.6 mg/dL (8.5-10.1); Carbon Dioxide 27.1 mMol/L (20.0-31.0); Chloride 102 mMol/L (98-107); Creatinine (Component) 0.8 mg/dL (0.6-1.3); Estimated Creatinine Clearance 100.0 mL/min (>60); Globulin 2.2 gm/dL (2.3-3.5); Glucose 91 mg/dL (74-106); Magnesium 1.7 mg/dL (1.6-2.6); Osmolality,Calculated 273 (275-295); Phosphorous 3.7 mg/dL (2.4-5.1); Potassium 4.2 mMol/L (3.4-5.1); Sodium 138 mMol/L (136-145); Total Protein 5.7 gm/dL (5.7-8.2); eGFR > 60 See Note
--- NOTE | 2024-11-20 17:15 | ESPR_ITS ---
Documentation for date of: 11/20/24 SECURITY MANAGEMENT SPECIALIST Subjective Subjective Interval history: Menorrhagia with critical hemoglobin of 5.8, palpable abdominal mass Charo Duncan, a 45-year-old female, presents to the emergency room with menorrhagia and a critical hemoglobin of 5.8. She has experienced worsening periods with heavy clots for over a year, initially attributed to pre-menopause. The patient reports that on July 30, she had a severe period with spasms, which prompted imaging. Following this episode, she switched medical providers and consulted Dr. Kiran at [facility], who then referred her to Dr. Villagomez. Dr. Villagomez removed her IUD and performed a biopsy, which returned negative results. A referral to Dr. Thompson was delayed due to insurance changes but was finally approved on October 26. Charo's symptoms have progressively worsened over time. She has been experiencing fevers since July, which remain unexplained. The patient's menorrhagia has significantly impacted her health, as evidenced by the critical drop in her hemoglobin levels from 7.5 in August to the current 5.8, necessitating a blood transfusion. The patient reports a family history of liver cancer, which may be relevant to her current condition. Charo's severe bleeding and associated symptoms have likely affected her daily functioning, though specific impacts are not detailed in the provided information. Medical History: - Menorrhagia (worsening periods with heavy clots for over a year) - Fevers since July Surgical History: - IUD removal and endometrial biopsy performed by Dr. Villagomez Diagnostic Test Results and Labs: - CBC (11-19-2024): Hemoglobin 5.8 g/dL - CBC (August 2024): Hemoglobin 7.5 g/dL - Pelvic ultrasound (11-19-2024): Uterus 12.8 cm, uterine fundal mass 4 x 3 cm, endometrial stripe 1.7 cm, right ovary 4.6 cm with arterial flow, right ovarian mass 14.7 x 11.6 x 15.9 cm vascular, left ovary 5.4 cm with arterial flow, left ovarian cyst 32 x 22 mm - CT scan (July 2024): Pelvic mass 12.7 x 11.6 x 14.3 cm, contiguous with uterine fundus - Endometrial biopsy: Negative Patient was admitted by Dr. Smith 11/19/2024 for severe anemia and menorrhagia. Her workup reveals a vascular right ovarian mass her CA125 is markedly elevated at 198. Normal is less than 32. The plan will be to send the patient home to follow-up in our clinic Saturday or Saturday and we are going to refer her onto a gynecologic oncologist in [place]. We are going to try to have her see Dr. Mcginnis at [facility]. Patient is aware that she could have an ovarian cancer she is a where of her pelvic mass and that she will need a hysterectomy she likely will need a staging operation. All questions were answered. Today she is resting comfortably and feels much better after 4 units of blood she also states she got plasma. Her pretransfusion hemoglobin is 5.8 posttransfusion hemoglobin 9.3. Subjective: patient reports feeling better, patient desires discharge and pain is well controlled (Patient takes half a tramadol a day for abdominal pain and would like a refill as she only has 3 left I will refill this for her.) Exam Vital Signs Temp Pulse Resp BP Pulse Ox O2 Del Method O2 Flow Rate 97.0 F 84 18 148/91 H 95 Room Air 97 11/20/24 16:00 11/20/24 16:00 11/20/24 16:00 11/20/24 16:00 11/20/24 16:00 11/20/24 16:00 11/20/24 06:29 Narrative Exam Patient is alert and oriented x 3 she is pleasant and in no apparent distress Routine Abdominal Exam Abdominal: Present soft Comments: Palpable mass in her right lower quadrant abdomen is otherwise soft nondistended no signs of ascites no rebound no guarding Urinary Catheter Management Cath placed during this visit: no SECURITY MANAGEMENT SPECIALIST - PN: Obj Data Labs 11/20/24 15:31 11/20/24 15:31 Labs: Laboratory Results - last 24 hr 11/19/24 11/19/24 11/19/24 11:13 15:52 16:20 WBC RBC Hgb Hct MCV MCH MCHC RDW Std Deviation Plt Count Neut % (Auto) Lymph % (Auto) [place] % (Auto) Eos % (Auto) Baso % (Auto) Neut # (Auto) Lymph # (Auto) [place] # (Auto) Eos # (Auto) Baso # (Auto) Immature Gran # (Auto) Absolute Nucleated RBC Immature Gran % Nucleated RBC % PT INR APTT Sodium Potassium Chloride Carbon Dioxide Anion Gap BUN Creatinine Estim Creat Clear Calc eGFR BUN/Creatinine Ratio Glucose Calculated Osmolality Calcium Corrected Calcium Phosphorus Magnesium Total Bilirubin AST ALT Alkaline Phosphatase Lactate Dehydrogenase 954 H Total Protein Albumin Globulin Albumin/Globulin Ratio Carcinoembryonic Ag < 0.5 CA 125 Antigen 198.0 H Beta HCG, Quant < 0 Urine Opiates Screen Negative Urine Fentanyl Screen Negative Ur Barbiturates Screen Negative U Amphetamin/Meth Scrn Negative U Benzodiazepines Scrn Negative U Cocaine Metab Screen Negative U Marijuana (THC) Screen Positive A Blood Type O Positive Antibody Screen NEGATIVE Crossmatch See Detail Blood Bank Wristband ID Yes Blood Bank Comment FFP Ready 11/20/24 11/20/24 08:28 15:31 WBC 10.8 12.8 H RBC 3.88 L 3.30 L Hgb 9.3 L D 7.9 L Hct 29.2 L 25.1 L MCV 75 L 76 L MCH 24.0 L 23.9 L MCHC 31.8 31.5 RDW Std Deviation 53.9 H 54.6 H Plt Count 354 D 401 D Neut % (Auto) 80 80 Lymph % (Auto) 4 L 3 L [place] % (Auto) 14 H 15 H Eos % (Auto) 1 1 Baso % (Auto) 1 1 Neut # (Auto) 8.6 H 10.2 H Lymph # (Auto) 0.5 L 0.4 L [place] # (Auto) 1.5 H 1.9 H Eos # (Auto) 0.1 0.1 Baso # (Auto) 0.1 0.1 Immature Gran # (Auto) 0.07 H 0.09 H Absolute Nucleated RBC 0.00 0.00 Immature Gran % 1 H 1 H Nucleated RBC % 0 0 PT 12.3 H INR 1.1 APTT 26.9 Sodium 138 Potassium 4.2 D Chloride 102 Carbon Dioxide 27.1 Anion Gap 9 BUN 8 L Creatinine 0.8 Estim Creat Clear Calc 100.0 eGFR > 60 BUN/Creatinine Ratio 10 L Glucose 91 D Calculated Osmolality 273 L Calcium 9.2 Corrected Calcium 9.6 Phosphorus 3.7 Magnesium 1.7 Total Bilirubin 0.4 AST < 10 ALT < 7 L Alkaline Phosphatase 54 Lactate Dehydrogenase Total Protein 5.7 Albumin 3.5 D Globulin 2.2 L Albumin/Globulin Ratio 1.6 Carcinoembryonic Ag CA 125 Antigen Beta HCG, Quant Urine Opiates Screen Urine Fentanyl Screen Ur Barbiturates Screen U Amphetamin/Meth Scrn U Benzodiazepines Scrn U Cocaine Metab Screen U Marijuana (THC) Screen Blood Type Antibody Screen Crossmatch Blood Bank Wristband ID Blood Bank Comment SECURITY MANAGEMENT SPECIALIST - A/P Assessment and plan (1) Pelvic mass in female: Problem details: Patient has a large pelvic mass. Her CA125 is markedly elevated to 198. This is worrisome for a potential ovarian carcinoma. She has been getting fevers nightly 100.0-100.9 degrees. She has received 4 units of blood. Hemoglobin this morning is 9.3 and later today it is 7.8. The plan will be to discharge home. Follow-up in our office in Saturday or Saturday of next week. Refer her onto a SECURITY MANAGEMENT SPECIALIST/ONC in [place]. This was explained to the patient in detail. We are going to try to refer her to Dr. Mcginnis at [facility]. Patient was given our office number to call Saturday. She was given Dr. Mcginnis's office messenger helper's number. Will have to authorize for her to see Dr. Mcginnis we will start this Saturday. Status: Inactive Time Spent With Patient Time: Total time spent is greater than 50% in coordination of care (as documented) at patient's floor/unit and/or counseling patient: Time with patient: less than 15 minutes
--- NOTE | 2024-11-20 17:21 | ESDS_ITS ---
Planned Discharge Date 11/20/24 DS: Providers Provider Date of admission: 11/19/24 15:49 Primary care physician: Chito Chacon MD Admitting Provider: Trent Thompson MD Attending Provider on Admission: Trent Thompson MD Attending Provider on DC: Gabriela Oakley MD ([facility]) Discharging Provider: Gabriela Oakley MD ([facility]) Anticipated date of discharge: 11/20/24 DS: Diagnosis Discharge Diagnosis (1) Pelvic mass: Status: Acute Assessment & Plan: Large pelvic mass on CT ultrasound and MRI suspicious for ovarian carcinoma with elevated CA125 5 of 198. Refer to PLASTIC SURGERY TECHNICIAN/ONC in [place] stat. (2) Abnormal vaginal bleeding: Status: Acute Assessment & Plan: Patient has a prescription for Provera to try to stabilize her bleeding (3) Symptomatic anemia: Status: Acute Assessment & Plan: Patient is status post 4 units of packed red blood cells and 1 of FFP (4) Elevated cancer antigen 125 (CA-125): Status: Acute Assessment & Plan: Most likely due to ovarian carcinoma. Referred to Dr. Mcginnis in [place] PLASTIC SURGERY TECHNICIAN\ONC. Problem List Completed Was Problem List Reviewed/Reconciled?: Yes Hospital Course Hospital Course Hospital course: Menorrhagia with critical hemoglobin of 5.8, palpable abdominal mass Charo Duncan, a 45-year-old female, presents to the emergency room with menorrhagia and a critical hemoglobin of 5.8. She has experienced worsening periods with heavy clots for over a year, initially attributed to pre-menopause. The patient reports that on July 30, she had a severe period with spasms, which prompted imaging. Following this episode, she switched medical providers and consulted Dr. Kiran at [facility], who then referred her to Dr. Villagomez. Dr. Villagomez removed her IUD and performed a biopsy, which returned negative results. A ref erral to Dr. Thompson was delayed due to insurance changes but was finally approved on October 26. Charo's symptoms have progressively worsened over time. She has been experiencing fevers since July, which remain unexplained. The patient's menorrhagia has significantly impacted her health, as evidenced by the critical drop in her hemoglobin levels from 7.5 in August to the current 5.8, necessitating a blood transfusion. The patient reports a family history of liver cancer, which may be relevant to her current condition. Charo's severe bleeding and associated symptoms have likely affected her daily functioning, though specific impacts are not detailed in the provided information. Medical History: - Menorrhagia (worsening periods with heavy clots for over a year) - Fevers since July Surgical History: - IUD removal and endometrial biopsy performed by Dr. Villagomez Diagnostic Test Results and Labs: - CBC (11-19-2024): Hemoglobin 5.8 g/dL - CBC (August 2024): Hemoglobin 7.5 g/dL - Pelvic ultrasound (11-19-2024): Uterus 12.8 cm, uterine fundal mass 4 x 3 cm, endometrial stripe 1.7 cm, right ovary 4.6 cm with arterial flow, right ovarian mass 14.7 x 11.6 x 15.9 cm vascular, left ovary 5.4 cm with arterial flow, left ovarian cyst 32 x 22 mm - CT scan (July 2024): Pelvic mass 12.7 x 11.6 x 14.3 cm, contiguous with uterine fundus - Endometrial biopsy: Negative Patient was admitted by Dr. Smith 11/19/2024 for severe anemia and menorrhagia. Her workup reveals a vascular right ovarian mass her CA125 is markedly elevated at 198. Normal is less than 32. The plan will be to send the patient home to follow-up in our clinic Saturday or Saturday and we are going to refer her onto a gynecologic oncologist in [place]. We are going to try to have her see Dr. Mcginnis at [facility]. Patient is aware that she could have an ovarian cancer she is a where of her pelvic mass and that she will need a hysterectomy she likely will need a staging operation. All questions were answered. Today she is resting comfortably and feels much better after 4 units of blood she also states she got plasma. Her pretransfusion hemoglobin is 5.8 posttransfusion hemoglobin 9.3. Of note the patient denies any history of ovarian breast or colon cancer. She states her dad and her paternal grandfather both from liver cancer. Her dad had hepatitis C. Both drank a lot of alcohol. Status at Discharge Cognitive/behavioral status at discharge: Patient is alert and orient x 3 in no apparent distress Functional status at discharge: independent ambulation Overall status at discharge: patient is progressing back to baseline Time Spent with Patient Time attestation: Total time spent providing and/or coordinating discharge services: Time spent: Less than 30 minutes Specific discharge activities: Continue to take iron. Come back to the ER with heavy vaginal bleeding. Follow-up in our clinic Saturday or Saturday of next week to be referred to [facility] - PLASTIC SURGERY TECHNICIAN Vital Signs Temp Pulse Resp BP Pulse Ox O2 Del Method O2 Flow Rate 97.0 F 84 18 148/91 H 95 Room Air 97 11/20/24 16:00 11/20/24 16:11/20/24 16:11/20/24 16:11/20/24 16:11/20/24 16:11/20/24 06:29 Narrative Exam Patient is alert and orient x 3 in no apparent distress. Abdomen is soft no rebound no guarding no ascites she has a palpable pelvic mass in her right lower quadrant Discharge Plan Plan Patient Disposition: HOME (Self Care) Disposition Comment: Stable Prescriptions/Referrals Prescriptions/Med Rec: New tramadol 50 mg tablet 50 mg PO BID PRN (Reason: pain) Qty: 30 0RF Continued tramadol 50 mg tablet 50 mg PO BID PRN (Reason: pain) Qty: 30 0RF Patient Comments: Take 1 tablet by mouth twice daily as needed for pain. No Action meloxicam 15 mg tablet 15 mg PO QDAY Qty: 10 0RF ferrous sulfate [FeroSul] 325 mg (65 mg iron) tablet 325 mg PO TID Patient Comments: Patient stated that her primary Doctor changed the order to TID Rx Instructions: TAKE 1 TABLET BY MOUTH DAILY WITH ORANGE JUICE. DO NOT GIVE WITH CAFFEINE medroxyprogesterone 10 mg tablet 10 mg PO QDAY Patient Comments: TAKE 4 TABLET BY MOUTH EVERY DAY FOR 10 DAYS EACH MONTH sennosides-docusate sodium [2-in-1 Laxative] 8.6-50 mg tablet 2 tab-cap PO DAILY PRN (Reason: constipation) Patient Comments: Take by mouth as a single daily dose, preferably in the evening, or in divided dose. Adult and children 12 years of age and over take 2-4 tablets daily. Referrals: [facility] ([facility])Gabriela MD [Physician, ENGINE INSPECTOR] Chito Chacon MD [Primary Care Provider, Family Practice] Patient/Caregiver Discharge Instructions Discharge Activity: activity as tolerated Other Discharge Activity Instructions:: Pelvic rest Other Discharge Diet Instructions: Continue to take oral iron. Eat iron rich f oods. Education Materials: Anemia During Cancer, Understanding Uterine Bleeding, Placenta Previa Print Language: Mongolian Activity Restrictions/Additional Instructions: Call the [place] [facility] office Stand Alone Forms: Sruthi Award Info., Patient Portal Info Letter Discharge Order Discharge Orders: Discharge (Routine); Ordered 11/20/24 Ordered By: Gabriela Oakley ([facility])
[2024-11-21 09:10] LABS: Chlamydia trachomatis PCR Negative (Not Detect); Neisseria Gonorrhoeae DNA PCR Negative (Not Detect); Trichomonas Positive (Negative)
[2024-11-25 07:06] LABS: CA 19-9 Antigen* 9 U/mL (<34)
== END 2024-11-20 18:11 | disposition home or self-care (01) | DRG 254 ==
LOC: SERX 13:48 → SERHOLD 16:29 → S3NX 19:32
PROVIDERS: Nurse Practitioner Primary Care; Admitting Provider Obstetrics & Gynecology; Emergency Provider Emergency Medicine; PCP Family Medicine; Referring Provider Obstetrics & Gynecology; Visit Provider Obstetrics & Gynecology
DX: R19.00 Intra-abdominal and pelvic swelling, mass and lump, unspecified site (principal); N92.0 Excessive and frequent menstruation with regular cycle; R50.9 Fever, unspecified; Z87.891 Personal history of nicotine dependence; D64.9 Anemia, unspecified; R97.1 Elevated cancer antigen 125 [CA 125]
CPT/HCPCS: 36415; 71046; 72197; 76856; 80053; 80307; 81001; 81025; 82378; 83615; 83735; 83880; 84100; 84484; 84702; 85025; 85610; 85730; 86301; 86304; 86850; 86900; 86901; 86923; 86927; 87040; 87086; 87491; 87591; 87661; 93005; 96361; 96365; 96374; 96375; 96376; 99285; A9577; J1171; J2405; J2470; J2543; J7042; P9016; P9060; A9270

== ENCOUNTER 2024-11-23 11:04 | Outpatient (AMB) | payer MEDICAID, SELFPAY ==
[2024-11-23 11:38] VITALS: BP 167/105; PULSE 100; RESP 16; TEMP 36.2; O2SAT 98; BMI 32.0
--- NOTE | 2024-11-23 11:39 | AMB.GYNCLNOT ---
Vital Signs 11/23/24 11:38 11/23/24 11:40 Height 1.68 m Height Method Stated Weight 89.925 kg Weight Measurement Method Standing Scale BMI 32.0 BP 167/105 H 167/105 H Blood Pressure Source Automatic Cuff Blood Pressure Location Left Upper Arm Position Sitting Respiration 16 16 Pulse 100 100 Pulse Source Monitor Temp 97.2 F 97.2 F Temp Source Oral Pulse Oximetry (%) 98 98 Oxygen Delivery Method Room Air Allergies/Home Meds Allergies & Medications Allergies WALNUTS Allergy (Unknown, Uncoded 11/23/24 11:39) Medication Reconciliation meloxicam 15 mg tablet 15 mg PO QDAY #10 tabs 08/01/24 [Rx Confirmed 11/23/24] ferrous sulfate 325 mg (65 mg iron) tablet (FeroSul) 325 mg PO TID 11/19/24 [History Confirmed 11/23/24] medroxyprogesterone 10 mg tablet 10 mg PO QDAY 11/19/24 [History Confirmed 11/23/24] sennosides 8.6 mg-docusate sodium 50 mg tablet (2-in-1 Laxative) 2 tab-cap PO DAILY PRN constipation 11/19/24 [History Confirmed 11/23/24] tramadol 50 mg tablet 50 mg PO BID PRN pain #30 tabs 11/20/24 [Rx Confirmed 11/23/24] tramadol 50 mg tablet 50 mg PO BID PRN pain #30 tabs 11/20/24 [Rx Confirmed 11/23/24] Intake Visit Data Collection New Patient or Established: Established Patient (seen at [facility] within 3 years) Reason for Visit:: Follow-up on pelvic mass Seen by Clinical Staff ONLY (RN/MA): No Accounts Payable Supervisor Required: No Do You Feel Safe at Home: Yes Authorities Contacted: N/A PCP or OBGYN visit in last 3 months: Yes Date of Last PCP or OBGYN visit: 11/20/24 Hx Now: No Are you currently on any form of Control: No Last menstrual period: 11/14/24 Pain Present Currently: No Pain Scale Used: Chadwick-Preciado/Numerical Pain scale:: 0 Smoking Status Smoking Status: Former smoker 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 She does report migraines. Dr. Chacon is her primary care. Questionnaires Covid-19 Vaccine Questionnaire Has patient been vacinated for Covid-19 Have you been vacinated for Covid-19: Yes PHQ-9 PHQ-2 Over the last 2 weeks, how often have you been bothered by any of the following problems? 1. Little interest or pleasure in doing things: not at all 2. Feeling down, depressed, or hopeless: not at all Total score: 0 PHQ-9 3. Trouble falling or staying asleep, or sleeping too much: Not at all 4. Feeling tired or having little energy: Not at all 5. Poor appetite or overeating: Not at all 6. Feeling bad about yourself - or that you are a failure or have let yourself or your family down: Not at all 7. Trouble concentrating on things, such as reading the newspaper or watching television: Not at all 8. Moving or speaking so slowly that other people could have noticed? - Or the opposite - being so fidgety or restless that you have been moving around a lot more than usual: not at all 9. Thoughts that you would be better off or of hurting yourself in some way: Not at all Total score: 0 If you checked off any problems, how difficult have these problems made it for you to do your work, take care of things at home, or get along with other people?: not difficult at all Source: Developed by Drs. Jose Guadalupe Nicole, Meme Burnette, Ricardo Llanes and colleagues, with an educational iliana from [employer]. Depression screen completed yes Social History Living Situation History Marital Status: Single Lives With: Family Housing: House Housing Other:: Patient is a 23-year-old daughter and a 23-year-old girl who lives with her Tobacco History Smoking Status: Former smoker Second Hand Smoke Exposure: No Alcohol History Alcohol Intake: Former Substance Use History Substance Use: Patient does use marijuana daily Domestic Abuse History Do You Feel Safe at Home: Yes History of Present Illness HPI Narrative The patient is a 44-year-old -0-0-1 status post in 2001 for preeclampsia at 38 weeks. The patient presented to the emergency room 11/19/2024 with heavy vaginal bleeding. Dr. Thompson saw her as a consult. As part of her workup a pelvic ultrasound was ordered, revealing a large pelvic mass approximately 14 x 15 cm and an elevated CA125 of 198. Her hemoglobin was very low at 5.8 and she was transfused 4 units of packed cells. She was discharged home 11/20/2024 to follow-up in our clinic. The patient needs to be referred onto a gynecological oncologist. She presented today to establish care to get referred on to a gynecologic oncologist. Of note I rounded on the patient in the hospital, and she does understand that she has a significant chance that this pelvic mass is actually an ovarian cancer. She is having heavy bleeding and did receive 4 units of blood on her admission. She states that she has lost approximately 50 pounds since February , 25 pounds within the last 2 months. She states she does not have much of an appetite. She states she has early satiety. She does see Dr. Chacon for primary care. Review of Systems Review of Systems Narrative Review of Systems: Patient has heavy vaginal bleeding, she has some back pain. She has decreased appetite. She is tired. She states she used to smoke and drink but now she has stopped completely. She admits she has not had a Pap or pelvic exam in years. She has never had a mammogram. Patient she has no family history of breast ovarian or colon cancer. Her father and grandfather both of liver cancer both both were heavy drinkers and she states her father also used drugs. Her father was positive for hepatitis C.. Constitutional Constitutional: Reports anorexia, Reports body aches, Reports fever(s) (Patient reports fevers of 100 to 100.9 degrees at night.), Reports poor appetite, Reports lethargy, Reports night sweats, Reports weakness and Reports weight loss Gastrointestinal Gastrointestinal: Reports abdominal pain, Reports change in bowel habits, Reports constipation and Reports early satiety Neurologic Neurologic: Reports weakness Exam General Limitations: no limitations General Appearance: alert and cooperative Neck Neck exam: Present normal inspection, full ROM and trachea midline Chest Chest inspection: Present normal inspection and symmetric chest wall rise Exp Chest Breast: bilateral: other (Normal breast exam bilaterally) Resp Respiratory exam: Present normal lung sounds bilaterally Card Cardiovascular exam: Present regular rate, normal rhythm and normal heart sounds Abdominal Abdominal exam: Present mass (Large pelvic mass approximately 18 weeks size. No rebound no guarding) External exam: Present normal external exam Speculum exam: Present normal speculum exam Bimanual exam: Present other (Large pelvic mass. Difficult to feel uterus separate from mass. Cervix appears grossly normal.) Extremities Extremities exam: Present normal inspection and full ROM Back Back exam: Present normal inspection and full ROM Psych Psychiatric exam: Present normal affect and normal mood Skin Skin exam: Present warm, dry, intact and normal color Results Objective Laboratory: From her admission 927, patient's hemoglobin is 5.8 after 4 units of blood it was 9.3 the next morning it dropped to 7.9. CA125 is elevated 198. CEA is less than 0.5 CA 19?9 is pending LDH was elevated 954. Imaging: Pelvic ultrasound reveals uterus to measure 12.8 cm with a mass in her fundus 4.3 cm and a right ovarian vascular mass measuring 14.7 x 11.6 x 15.9 cm, MRI of her pelvis reveals a central right pelvic mass 15 x 13 x 16 cm no lymphadenopathy no ascites. Office Procedures OBC Clinic LOC & Office Proc's Nursing/Assessment Patient Status: Established Patient OB Clinic Nursing Assessment: Medication Reconciliation, Update PMH in EMR and Vital Signs OB Clinic Coordination of Care: Education Complex Pt/Fam, Consent,records obtained, informed consent, Lab and Imaging orders, Results/Orders obtained and Staff clarify orders Established Patient Charge Established Patient Point Assignment: 85 Established Patient Point Charge: EP Level 3 (80-115) Assessment & Plan Diagnosis / Problem List (1) Elevated cancer antigen 125 (CA-125): Status: Acute Plan: Urgent referral to [facility] to see Dr. Mcginnis, gynecologic oncologist for further treatment. Her test results were explained to the patient in detail with her daughter at bedside. Her daughter is 23 years old. She understands that her imaging and lab tests are very suspicious for an ovarian cancer. It is quite concerning that she has lost a large amount of weight over the last 10 months. She also reports fevers at nighttime. Patient continues to have heavy bleeding. She already was transfused 4 units of blood and is still at a hemoglobin of 7.9. Patient was encouraged to take iron. To eat small regular meals in order to keep her energy up. Ensure shakes were encouraged for nutrition. (2) Pelvic mass: Status: Acute (3) Abnormal vaginal bleeding: Status: Acute (4) Symptomatic anemia: Status: Acute Plan: Patient has been transfused 4 units of packed red blood cells recently. (5) Women's annual routine gynecological examination: Status: Acute Plan: Pap with cotesting to HPV was performed breast exam done encouraged mammogram was ordered. Patient cannot remember the last time she had a Pap smear. She has never had a mammogram and never had colon screening. 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: Papsmear Pap Smear Procedure Pre-op diagnosis general: Annual women's wellness screening exam Post-op diagnosis procedure note: Same Chaparone in room during procedure?: No Procedure position: lithotomy Speculum inserted, cervix visualized: Yes Cervical appearance: normal Collection method: broom type device Specimen placed in liquid-based cytology medium: Yes Complications: No Patient tolerated procedure well: Yes Follow up pending results: phone call Procedure Notes:: After obtaining verbal informed consent by the patient, the patient was placed in the dorsal lithotomy position and a speculum inserted. Her cervix was visualized and appeared grossly normal. A screening Pap smear with cotesting to HPV, was then performed by using a broom device and the Pap was placed in a liquid medium. The patient tolerated the procedure well. Papsmear completed: yes
[2024-11-23 11:40] VITALS: BP 167/105; PULSE 100; RESP 16; TEMP 36.2; O2SAT 98
== END 2024-11-23 12:19 | disposition home or self-care (01) ==
LOC: HODSOBC 11:04
PROVIDERS: PCP Family Medicine; Referring Provider Family Medicine; Supervising Provider Obstetrics & Gynecology; Visit Provider Obstetrics & Gynecology
DX: R19.00 Intra-abdominal and pelvic swelling, mass and lump, unspecified site (principal); N93.9 Abnormal uterine and vaginal bleeding, unspecified; D64.9 Anemia, unspecified; R97.1 Elevated cancer antigen 125 [CA 125]; Z01.419 Encounter for gynecological examination (general) (routine) without abnormal findings; Z11.51 Encounter for screening for human papillomavirus (HPV); Z87.891 Personal history of nicotine dependence
CPT/HCPCS: 99213; G0463

== ENCOUNTER 2025-02-23 08:13 | Emergency (ER) | payer MEDICAID, SELFPAY ==
[2025-02-23 08:29] VITALS: BP 139/91; PULSE 89; RESP 16; TEMP 37.3; O2SAT 95; BMI 29.8
--- NOTE | 2025-02-23 08:42 | PD.EDADULT ---
ED General RME/HPI General Chief complaint: General Adult/Misc Complain Stated complaint: NEEDS PICC LINE DRSG/UROSTOMY SET UP CHANGED Time Seen by Provider: 02/23/25 08:19 Source: patient Arrival date/time: 02/23/25 08:13 45-year-old female with a history of cancer, presents to the emergency room needing her dressing changed and her PICC line and urostomy. Patient denies any other complaints. Mode of arrival: ambulatory Limitations: no limitations Related Data Home Medications ?Medication ?Instructions ?Recorded ?Confirmed ferrous sulfate 325 mg (65 mg 325 mg PO TID 11/19/24 11/23/24 iron) tablet (FeroSul) medroxyprogesterone 10 mg tablet 10 mg PO QDAY 11/19/24 11/23/24 sennosides 8.6 mg-docusate sodium 2 tab-cap PO DAILY PRN constipation 11/19/24 11/23/24 50 mg tablet (2-in-1 Laxative) Previous Rx's ?Medication ?Instructions ?Recorded meloxicam 15 mg tablet 15 mg PO QDAY #10 tabs 08/01/24 tramadol 50 mg tablet 50 mg PO BID PRN pain #30 tabs 11/20/24 tramadol 50 mg tablet 50 mg PO BID PRN pain #30 tabs 11/20/24 magnesium citrate (OneLAX 300 ml PO QDAY PRN constipation 11/23/24 Magnesium Citrate oral solution) #296 mL Allergies Allergy/AdvReac Type Severity Reaction Status Date / Time WALNUTS Allergy Unknown Uncoded 02/23/25 08:17 Review of Systems Review of Systems Systems Reviewed: All systems reviewed, normal except as documented Constitutional Constitutional: Reports system reviewed and no additional complaints, except as documented, Denies fatigue, Denies fever(s), Denies headache(s) and Denies weakness Eyes Eyes: Reports system reviewed and no additional complaints, except as documented, Denies blurry vision and Denies change in vision ENT Ears, Nose, Mouth, and Throat: Reports system reviewed and no additional complaints, except as documented, Denies otalgia, Denies headache(s), Denies nasal congestion, Denies throat swelling and Denies vertigo Cardiovascular Cardiovascular: Reports system reviewed and no additional complaints, except as documented, Denies chest pain, Denies dyspnea and Denies dyspnea on exertion Respiratory Respiratory: Reports system reviewed and no additional complaints, except as documented, Denies chest congestion, Denies cough, Denies dyspnea, Denies dyspnea on exertion and Denies wheezing Gastrointestinal Gastrointestinal: Reports system reviewed and no additional complaints, except as documented, Denies abdominal pain, Denies cramping, Denies nausea and Denies vomiting Genitourinary Genitourinary: Reports system reviewed and no additional complaints, except as documented Musculoskeletal Musculoskeletal: Reports system reviewed and no additional complaints, except as documented and Denies back pain Integumentary/Breasts Skin/Breast: Reports system reviewed and no additional complaints, except as documented and Denies wounds Neurologic Neurologic: Reports system reviewed and no additional complaints, except as documented, Denies confusion, Denies headache(s), Denies lack of coordination, Denies vertigo and Denies weakness Psychiatric Psychiatric: Reports system reviewed and no additional complaints, except as documented, Denies anxiety, Denies confusion, Denies depression, Denies paranoia, Denies suicidal ideation and Denies tactile hallucinations Endocrine Endocrine: Reports system reviewed and no additional complaints, except as documented and Denies fatigue Hematologic/Lymphatic Hematologic/Lymphatic: Reports system reviewed and no additional complaints, except as documented and Denies lymphadenopathy Allergic/Immunologic Allergic/Immunologic: Reports system reviewed and no additional complaints, except as documented, Denies throat swelling, Denies urticaria and Denies wheezing Past Medical History Past Medical History CARDIAC: Negative Congestive Heart Failure RESPIRATORY: Negative Chronic Obstructive Pulmonary Disease (COPD) GENITOURINARY: Negative Renal Disease ENDOCRINE: Negative Diabetes Mellitus Type 1 or Diabetes Mellitus Type 2 Social History SMOKING STATUS: Never smoker SECOND HAND EXPOSURE: No ED Exam General Limitations: Present no limitations General appearance: Present alert and in no apparent distress Head Head exam: Present atraumatic Eye Eye exam: Present normal appearance, PERRL and EOMI ENT ENT exam: Present normal exam, normal oropharynx and mucous membranes moist Neck Neck exam: Present normal inspection, full ROM and trachea midline Chest Chest inspection: Present normal inspection and symmetric chest wall rise Respiratory Respiratory exam: Present normal lung sounds bilaterally Cardiovascular Cardiovascular exam: Present regular rate, normal rhythm and normal heart sounds Abdominal Exam Abdominal exam: Present soft and normal bowel sounds Extremities Exam Extremities exam: Present normal inspection and full ROM Back Exam Back exam: Present normal inspection and full ROM Neurological Exam Neurological exam: Present alert, oriented X3 and CN II-XII intact Psychiatric Psychiatric exam: Present normal affect and normal mood Skin Skin exam: Present warm, dry, intact and normal color Course Quality Measures none Orders Category Date Time Status Wound Care [Wound Care] X1 Care 02/23/25 08:42 Completed Vital Signs Vital signs: Vital Signs Temperature 99.1 F 02/23/25 08:29 Pulse Rate 89 02/23/25 08:29 Respiratory Rate 16 02/23/25 08:29 Blood Pressure 139/91 H 02/23/25 08:29 Pulse Oximetry (%) 95 02/23/25 08:29 Oxygen Delivery Method Room Air 02/23/25 08:29 Discharge Plan Plan Patient Disposition: HOME (Self Care) Discharge Disposition comment: Stable Prescriptions/Referrals Prescriptions/Med Rec: No Action magnesium citrate [OneLAX Magnesium Citrate] Solution 300 ml PO QDAY PRN (Reason: constipation) Qty: 296 3RF meloxicam 15 mg tablet 15 mg PO QDAY Qty: 10 0RF ferrous sulfate [FeroSul] 325 mg (65 mg iron) tablet 325 mg PO TID Patient Comments: Patient stated that her primary Doctor changed the order to TID Rx Instructions: TAKE 1 TABLET BY MOUTH DAILY WITH ORANGE JUICE. DO NOT GIVE WITH CAFFEINE medroxyprogesterone 10 mg tablet 10 mg PO QDAY Patient Comments: TAKE 4 TABLET BY MOUTH EVERY DAY FOR 10 DAYS EACH MONTH sennosides-docusate sodium [2-in-1 Laxative] 8.6-50 mg tablet 2 tab-cap PO DAILY PRN (Reason: constipation) Patient Comments: Take by mouth as a single daily dose, preferably in the evening, or in divided dose. Adult and children 12 years of age and over take 2-4 tablets daily. tramadol 50 mg tablet 50 mg PO BID PRN (Reason: pain) Qty: 30 0RF Patient Comments: Take 1 tablet by mouth twice daily as needed for pain. tramadol 50 mg tablet 50 mg PO BID PRN (Reason: pain) Qty: 30 0RF Problem List Clinical Impression: Encounter for change of dressing Patient/Caregiver Discharge Instructions Education Materials: Suture Care Additional Instructions: Please follow-up with your primary care provider in the next 24 to 48 hours Your PICC line dressing and urostomy dressing were both changed with no complications For any evidence of worsening signs or symptoms return to emergency room immediately Print Language: Lao Stand Alone Forms: Sruthi Award Info., Work/School Release, Patient Portal Info Letter MANDY/CHIDI Supervising Physician MANDY/CHIDI Supervising Physician: Dr. Colmenares MDM Narrative MDM hospital course (for use when minimal MDM required): 45-year-old female with a history of cancer, presents to the emergency room needing her dressing changed and her PICC line and urostomy. Patient denies any other complaints. Patient is hemodynamically stable and in no apparent distress. Patient denies any drainage leaking redness warmth or any signs of infection to any of her wounds The dressings were changed with no complications Patient was discharged and educated to follow-up with primary care provider in the next 24 to 48 hours and return to the emergency room for any evidence of worsening signs or symptoms Clinical Information Provided by: none Medical Records reviewed None Meds/Rx considered, not ordered None Labs/Rad/Tests considered, not ordered None Chronic Illness/Social Conditions which may negatively complicate care or outcome(s)-explain: None or not applicable EKG EKG not done Labs Labs: none Imaging Imaging interpretation: none Medication Administration(s) none Diagnosis Differential Diagnosis ED Complaint MDM: Encounter for wound dressing change Diagnoses ruled out and/or further discussions: Encounter for wound dressing change
--- NOTE | 2025-02-23 12:23 | PC.NURSE ---
PT'S PICC LINE DRESSING AND UROSTOMY DRESSING CHANGED PER PT'S REQUEST. PT UPSET BECAUSE THE SUPPLIES USED AT THIS HOSPITAL ARE DIFFERENT TO THE ONES USED AT THE HOSPITAL IN [place]. PROCEDURE EXPLAINED TO PT BY NURSE CHANGING PICC DRESSING BUT PT WAS NOT HAPPY WITH THE WAY THE DRESSING WAS CHANGED. INFORMED PT THAT THIS WAS THE DRESSING WE USED IN THIS HOSPITAL AND THAT IT WAS DONE CORRECTLY. PT REQUESTED NAME OF WHERE SHE COULD CALL TO COMPLAIN. PT GIVEN THE NAME OF PATIENT [facility] AND THE HOSPITAL PHONE NUMBER. SHE STATED SHE WILL LOGE A COMPLAINT.
== END 2025-02-23 12:18 | disposition home or self-care (01) ==
LOC: SERX 08:50
PROVIDERS: Emergency Provider Nurse Practitioner Family; PCP Student in an Organized Health Care Education/Training Program
DX: Z48.01 Encounter for change or removal of surgical wound dressing (principal)
CPT/HCPCS: 99281